=== PATIENT | male | born 1935 | race Caucasian/White ===

== ENCOUNTER → 2016-05-02 | Outpatient (CLI) | payer OTHER, BC ==
[~2016-05-02] MED LIST: ASPEC81 PO; CMD25 PO; CMD5 PO; LOSA100T2 PO; METO1TAB69 PO; PANT40TA PO
[2016-05-02 12:53] LABS: HEMATOCRIT 41.2 % (42-52); MEAN CELL VOLUME 94.3 fL (80-100); MEAN CORPUSCULAR HEMOGLOBIN 32.5 pg (25-34); MEAN CORPUSCULAR HGB CONC 34.5 g/dl (32-36); MEAN PLATELET VOLUME 11.8 fL (7.4-10.4); PLATELET COUNT 169 K/uL (130-400); RED BLOOD COUNT 4.37 M/uL (4.7-6.1); WHITE BLOOD COUNT 7.41 K/uL (4.8-10.8)
[2016-05-02 12:58] LABS: ALT/SGPT 25 U/L (12-78); BLOOD UREA NITROGEN 18 mg/dl (7-18); BUN/CREATININE RATIO 13.1 (10-20); CALCIUM 8.9 mg/dl (8.5-10.1); CARBON DIOXIDE 25 mmol/L (21-32); CHLORIDE 104 mmol/L (98-107); CHOLESTEROL 154 mg/dl (0-200); GLUCOSE 93 mg/dl (70-99); POTASSIUM 4.3 mmol/L (3.5-5.1); SODIUM 140 mmol/L (136-145)
[2016-05-02 13:08] LABS: ALB/GLOB RATIO 1.1 (0.9-2); ALKALINE PHOSPHATASE 70 U/L (45-117); AST/SGOT 23 U/L (15-37); CHOLESTEROL/HDL RATIO 3.4; HDL CHOLESTEROL 45 mg/dl; LDL CHOLESTEROL CALCULATED 86 mg/dl; TRIGLYCERIDES 114 mg/dl (0-150); VERY LOW DENSITY LIPOPROT CALC 23 mg/dl
== END | disposition home or self-care (01) ==
LOC: C.LABBFT 08:22
PROVIDERS: ATTEND Internal Medicine Cardiovascular Disease
DX: D64.9 Anemia, unspecified (principal)

== ENCOUNTER → 2017-05-08 | Outpatient (CLI) | payer OTHER, BC ==
[~2017-05-08] MED LIST changes: +METO100T44 PO; -METO1TAB69 PO
[2017-05-08 12:24] LABS: HEMATOCRIT 40.9 % (42-52); HEMOGLOBIN 14.1 g/dL (14.0-18.0); MEAN CELL VOLUME 93.6 fL (80-100); MEAN CORPUSCULAR HEMOGLOBIN 32.3 pg (25-34); MEAN CORPUSCULAR HGB CONC 34.5 g/dl (32-36); MEAN PLATELET VOLUME 11.6 fL (7.4-10.4); PLATELET COUNT 153 K/uL (130-400); RED CELL DISTRIBUTION WIDTH CV 13.4 % (11.5-14.5); RED CELL DISTRIBUTION WIDTH SD 46.4 fL (36.4-46.3); WHITE BLOOD COUNT 7.42 K/uL (4.8-10.8)
[2017-05-08 14:41] LABS: ALBUMIN 3.6 gm/dl (3.4-5.0); ALT/SGPT 27 U/L (12-78); AST/SGOT 22 U/L (15-37); BLOOD UREA NITROGEN 22 mg/dl (7-18); CALCIUM 8.9 mg/dl (8.5-10.1); CARBON DIOXIDE 29 mmol/L (21-32); CREATININE 1.52 mg/dl (0.60-1.40); GLUCOSE 92 mg/dl (70-99); POTASSIUM 4.2 mmol/L (3.5-5.1); SODIUM 137 mmol/L (136-145)
[2017-05-08 14:53] LABS: ALKALINE PHOSPHATASE 81 U/L (45-117); TOTAL PROTEIN 7.5 gm/dl (6.4-8.2)
== END | disposition home or self-care (01) ==
LOC: C.LABBFT 08:47
PROVIDERS: ATTEND Internal Medicine Cardiovascular Disease
DX: I10 Essential (primary) hypertension (principal); E03.9 Hypothyroidism, unspecified; I48.2 Chronic atrial fibrillation; Z79.01 Long term (current) use of anticoagulants

== ENCOUNTER 2017-06-04 20:46 | Observation (INO) | payer OTHER, BC ==
[~2017-06-04] VITALS: Ht 170.2 cm; Wt 93.2 kg
[2017-06-04 21:33] LABS: BASO % 0.3 %; BASO ABS # 0.03 K/uL (0-0.2); EOS % 2.6 %; EOS ABS # 0.27 K/uL (0-0.5); HEMATOCRIT 40.7 % (42-52); HEMOGLOBIN 14.2 g/dL (14.0-18.0); IG# 0.02 K/uL (0.00-0.02); LYMPH % 11.3 %; LYMPH ABS # 1.18 K/uL (1.2-3.4); MEAN CELL VOLUME 92.3 fL (80-100); MEAN CORPUSCULAR HEMOGLOBIN 32.2 pg (25-34); MEAN CORPUSCULAR HGB CONC 34.9 g/dl (32-36); MONO % 6.4 %; MONO ABS # 0.67 K/uL (0.11-0.59); NEUT % 79.2 %; NEUT ABS # 8.26 K/uL (1.4-6.5); PLATELET COUNT 143 K/uL (130-400); RED CELL DISTRIBUTION WIDTH CV 13.5 % (11.5-14.5); RED CELL DISTRIBUTION WIDTH SD 45.7 fL (36.4-46.3); WHITE BLOOD COUNT 10.43 K/uL (4.8-10.8)
--- NOTE | 2017-06-04 21:34 | DIAGNOSTIC IMAGING REPORT ---
CHEST ONE VIEW PORTABLE CLINICAL HISTORY: Atypical chest pain COMPARISON STUDY: June 2005 FINDINGS: The cardiac and mediastinal contours remain stable. There is stable elevation the right hemidiaphragm. There is no failure. There is no lobar consolidation. There are no pleural effusions. There are mild basilar atelectatic changes.[ IMPRESSION: No active disease in the chest. Electronically signed by: Mat Erickson M.D. 06/04/2017 9:32 PM Dictated Date/Time: 06/04/2017 9:32 PM
[2017-06-04 21:35] LABS: ISTAT CREATININE 1.4 mg/dl (0.6-1.3); ISTAT IONIZED CALCIUM 1.16 mmol/l (1.12-1.32); ISTAT POTASSIUM 4.2 mEq/L (3.3-5.0)
[2017-06-04 21:43] LABS: INR 1.7 (0.9-1.1)
[2017-06-04 21:56] LABS: ALBUMIN 3.9 gm/dl (3.4-5.0); ALKALINE PHOSPHATASE 98 U/L (45-117); ALT/SGPT 47 U/L (12-78); AST/SGOT 70 U/L (15-37); CKMB 2.4 ng/ml (0.5-3.6); LIPASE 143 U/L (73-393); TOTAL PROTEIN 7.8 gm/dl (6.4-8.2)
--- NOTE | 2017-06-04 22:15 | EMERGENCY ROOM VISIT NOTE ---
History Report prepared by Lazaro: Dariusz Araujo Under the Supervision of: Dr. Miguel Ángel Rust M.D. First contact with patient: 21:01 Chief Complaint: CHEST PAIN Stated Complaint: CHEST PRESSURE AND INDIGESTION History of Present Illness The patient is an 82 year old male who presents to the Emergency Room with complaints of improving chest pain starting around 1700 tonight. He describes the pain as a burning sensation. The patient additionally notes that he has been belching and having some indigestion, and the pain came before eating dinner. He also was feeling warm, and he states that he has upper back pain, though he says that he pulled a muscle a couple of days ago. The patient states that he has had indigestion for the past couple of weeks, though he states that it has felt a little it different today. He has a history of A-fib, and he states that he has not had any bypass or stents placed. He states that he has not been around anyone sick recently that he knows of. Pt denies LOC, headache, fevers, chills, diaphoresis, visual changes, neck pain, breathing difficulties, nausea, vomiting, abdominal pain, melena, hematochezia, urinary symptoms, numbness, weakness, lymphadenopathy, rash, or other complaints. Source of History: patient Onset: 1700 tonight Position: chest Quality: burning Timing: other (improving) Associated Symptoms: + back pain Note: Associated symptoms: Belching and indigestion Review of Systems See HPI for pertinent positives and negatives. A total of ten systems were reviewed and were otherwise negative. Past Medical & Surgical Medical Problems: (1) Atrial fibrillation (2) Nasal bleeding Social History Smoking Status: Never Smoker Alcohol Use: none Marital Status: Occupation Status: retired Current/Historical Medications Scheduled Aspirin Enteric Coated (Ecotrin Or Generic *), 81 MG PO DAILY Losartan Potassium & Hydrochlo (Hyzaar), 1 TABLET PO DAILY Metoprolol Succ (Toprol Xl) (Toprol-Xl ), 100 MG PO DAILY Pantoprazole (Protonix), 40 MG PO DAILY Warfarin Sod (Coumadin *), 2.5 MG PO 3XWK Warfarin Sod (Coumadin *), 5 MG PO 4XWK Allergies Coded Allergies: No Known Allergies (Verified Allergy, Unknown, 06/20/04) Physical Exam Vital Signs Date Time Temp Pulse Resp B/P (MAP) Pulse Ox O2 Delivery O2 Flow Rate FiO2 06/04/17 21:42 Room Air 06/04/17 21:42 Room Air 06/04/17 21:16 82 06/04/17 20:49 36.3 92 20 158/94 96 Room Air Physical Exam GENERAL: Awake, alert, well-appearing, in no distress HENT: Normocephalic, atraumatic. Oropharynx unremarkable. EYES: Normal conjunctiva. Sclera non-icteric. NECK: Supple. No nuchal rigidity. FROM. No masses. RESPIRATORY: Clear to auscultation. No wheezes. No rales. Normal respiratory effort. CARDIAC: Normal rate. Normal rhythm. No murmurs. No rubs. Extremities warm and well perfused. Pulses equal. No JVD. GI: Soft, non-distended. No tenderness to palpation. No rebound or guarding. No masses. RECTAL: Deferred. MUSCULOSKELETAL: Atraumatic. Chest examination reveals no tenderness. The back is symmetrical on inspection without obvious abnormality. There is no CVA tenderness to palpation. No joint edema. LOWER EXTREMITIES: 1+ edema. Calves are equal size bilaterally and non-tender. No discoloration. NEURO: Normal sensorium. No sensory or motor deficits noted. SKIN: No rash or jaundice noted. Medical Decision & Procedures ER Provider Diagnostic Interpretation: Radiology results as stated below per my review and radiologist interpretation: CHEST ONE VIEW PORTABLE CLINICAL HISTORY: Atypical chest pain COMPARISON STUDY: June 2005 FINDINGS: The cardiac and mediastinal contours remain stable. There is stable elevation the right hemidiaphragm. There is no failure. There is no lobar consolidation. There are no pleural effusions. There are mild basilar atelectatic changes.[ IMPRESSION: No active disease in the chest. Electronically signed by: Mat Erickson M.D. 06/04/2017 9:32 PM Dictated Date/Time: 06/04/2017 9:32 PM Laboratory Results 06/04/17 21:10 Red Blood Count 4.41, Mean Corpuscular Volume 92.3, Mean Corpuscular Hemoglobin 32.2, Mean Corpuscular Hemoglobin Concent 34.9, Mean Platelet Volume 11.0, Neutrophils (%) (Auto) 79.2, Lymphocytes (%) (Auto) 11.3, Monocytes (%) (Auto) 6.4, Eosinophils (%) (Auto) 2.6, Basophils (%) (Auto) 0.3, Neutrophils # (Auto) 8.26, Lymphocytes # (Auto) 1.18, Monocytes # (Auto) 0.67, Eosinophils # (Auto) 0.27, Basophils # (Auto) 0.03 Test 06/04/17 21:10 06/04/17 21:20 White Blood Count 10.43 K/uL (4.8-10.8) Red Blood Count 4.41 M/uL (4.7-6.1) Hemoglobin 14.2 g/dL (14.0-18.0) Hematocrit 40.7 % (42-52) Mean Corpuscular Volume 92.3 fL (80-100) Mean Corpuscular Hemoglobin 32.2 pg (25-34) Mean Corpuscular Hemoglobin Concent 34.9 g/dl (32-36) Platelet Count 143 K/uL (130-400) Mean Platelet Volume 11.0 fL (7.4-10.4) Neutrophils (%) (Auto) 79.2 % Lymphocytes (%) (Auto) 11.3 % Monocytes (%) (Auto) 6.4 % Eosinophils (%) (Auto) 2.6 % Basophils (%) (Auto) 0.3 % Neutrophils # (Auto) 8.26 K/uL (1.4-6.5) Lymphocytes # (Auto) 1.18 K/uL (1.2-3.4) Monocytes # (Auto) 0.67 K/uL (0.11-0.59) Eosinophils # (Auto) 0.27 K/uL (0-0.5) Basophils # (Auto) 0.03 K/uL (0-0.2) RDW Standard Deviation 45.7 fL (36.4-46.3) RDW Coefficient of Variation 13.5 % (11.5-14.5) Immature Granulocyte % (Auto) 0.2 % Immature Granulocyte # (Auto) 0.02 K/uL (0.00-0.02) Prothrombin Time 17.9 SECONDS (9.0-12.0) Prothromb Time International Ratio 1.7 (0.9-1.1) Activated Partial Thromboplast Time 33.0 SECONDS (21.0-31.0) Partial Thromboplastin Ratio 1.3 Total Bilirubin 0.8 mg/dl (0.2-1) Direct Bilirubin 0.4 mg/dl (0-0.2) Aspartate Amino Transf (AST/SGOT) 70 U/L (15-37) Alanine Aminotransferase (ALT/SGPT) 47 U/L (12-78) Alkaline Phosphatase 98 U/L (45-117) Total Creatine Kinase 125 U/L (39-308) Creatine Kinase MB 2.4 ng/ml (0.5-3.6) Creatine Kinase MB Ratio 1.9 (0-3.0) Troponin I < 0.015 ng/ml (0-0.045) Total Protein 7.8 gm/dl (6.4-8.2) Albumin 3.9 gm/dl (3.4-5.0) Lipase 143 U/L (73-393) Bedside Hemoglobin 15.0 g/dl (14.0-18.0) Bedside Hematocrit 44 % (42-52) Bedside Sodium 137 mEq/L (135-144) Bedside Potassium 4.2 mEq/L (3.3-5.0) Bedside Chloride 99 mEq/L (101-112) Bedside Total CO2 28 mEq/l (24-31) Anion Gap 15.0 mmol/L (16-25) Bedside Blood Urea Nitrogen 24 mg/dl (7-18) Bedside Creatinine 1.4 mg/dl (0.6-1.3) Bedside Glucose (other) 115 mg/dl (70-99) Bedside Ionized Calcium (Manisha) 1.16 mmol/l (1.12-1.32) Laboratory results reviewed by me ECG Per My Interpretation Indication: chest pain Rate (beats per minute): 76 Rhythm: atrial fibrillation Findings: nonspecific-ST abn, ST depression (subtle anterior) Comparison ECG Date: 05/23/10 Change: A fib has replaced sinus and ST segment changes are now present. ED Course 2100: The patient was evaluated in room C12. A complete history and physical exam was performed. Medical Decision Triage Nursing notes reviewed and agree them. Additional history obtained from the family. The patient's history was concerning for chest pain. Differential diagnosis: Etiologies such as cardiac ischemia, aortic dissection, pulmonary embolism, pneumonia, pneumothorax, musculoskeletal, infections, pericarditis, myocarditis , esophageal rupture, gastrointestinal, as well as others were entertained. Physical examination: As above. ER treatment provided: No medication given. The patient had taken aspirin and warfarin today. The patient was pain-free. On reassessment the patient felt well. Diagnostic interpretation by me: The electrocardiogram as above. Subtle ST changes. The labs revealed an unremarkable CBC and chemistry panel. Cardiac markers negative. Mild elevation of LFTs. Imaging studies: Chest x-ray as above. Ultrasound pending. The patient has some worrisome chest pain. Further cardiac evaluation will be necessary. Consultation: A consultation was placed with the hospitalist. The case was discussed and diagnostics were reviewed. The patient was evaluated in the ER for further treatment. Medication Reconcilliation Current Medication List: was personally reviewed by me Blood Pressure Screening Patient's blood pressure: Elevated blood pressure Monitored by the hospitalist Consults Consulting Physician: Dr. Milligan and Dr. Wyatt Hdz [facility] [place] Impression Primary Impression: Substernal chest pain Scribe Attestation The scribe's documentation has been prepared under my direction and personally reviewed by me in its entirety. I confirm that the note above accurately reflects all work, treatment, procedures, and medical decision making performed by me. Departure Information Dispostion Being Evaluated By Hospitalist Referrals Sly Joseph M.D. (PCP) Patient Instructions My [facility]
[2017-06-04] MEDS ORDERED: ASPI81TA28 PO (22:17)
[2017-06-04] MEDS ORDERED: METO50TA8 PO (22:17)
[2017-06-04] MEDS ORDERED: WARF-246 PO ×2 (22:17)
[2017-06-04] MEDS ORDERED: RANI150T3 PO (22:19)
[2017-06-04] MEDS ORDERED: DOCU100C PO (22:19)
[2017-06-04] MEDS ORDERED: ALUM-30 PO (22:19)
[2017-06-04 22:55] LABS: CALCIUM 8.9 mg/dl (8.5-10.1); CREATININE 1.46 mg/dl (0.60-1.40); POTASSIUM 4.2 mmol/L (3.5-5.1)
[2017-06-05] VITALS (9 sets, daily range): BP systolic 111–175; BP diastolic 65–98; PULSE 44–89; TEMP 36.3–36.8; O2SAT 94–97; Ht 170.2 cm; Wt 93.2 kg
--- NOTE | 2017-06-05 01:23 | History and Physical ---
History & Physical Date & Time of Service: Jun 05, 2017 at 01:15 Chief Complaint: Chest Pressure And Indigestion Primary Care Physician: Sly Joseph M.D. History of Present Illness Source: patient 82 yo M with pMHx paroxysmal a.fib, CKD, HTN, presented to the ER for evaluation of chest pain. He had been sitting watching TC when he started to feel burning along his sternum. he attributed this to indigestion, although had not yet eaten dinner. He denies "chest pain," but did feel worsening back back simultaneously. He states that he may have pulled a muscle a several days ago, but the pain today was different. No radiation of pain into jaw or arm, no dyspnea. He felt slightly nauseous and warm, but not diaphoretic. He check his BP at home and found it to be 157/99. This elevated pressure plus new symptoms prompted him to seek evaluation. Pain persisted until arrival to ER. He otherwise denies fevers/chills, headaches, palpitations, abdominal pain, lower extremity swelling or rashes. He is tolerating diet without nausea or vomiting, ambulating without exacerbating symptoms, voiding without urinary symptoms and stooling appropriately. ROS is unremarkable except as noted above. Past Medical/Surgical History Medical Problems: PAF (diagnosed in 2004) HTN Hypothyroid GERD BPH CKD Anemia Family History Noncontributory Social History Smoking Status: Never Smoker Smokeless Tobacco Use: No Alcohol Use: none Drug Use: none Marital Status: Housing status: lives with family Occupational Status: retired Immunizations History of Tetanus Vaccine?: 1998 History of Pneumococcal: No History of Hepatitis B Vaccine: No Allergies Coded Allergies: No Known Allergies (Verified Allergy, Unknown, 06/20/04) Home Medications Scheduled Aspirin (Aspirin Ec), 81 MG PO DAILY Docusate Sodium (Stool Softener), 100 MG PO TID Losartan Potassium & Hydrochlo (Hyzaar), 1 TABLET PO DAILY Metoprolol Succ (Toprol Xl) (Toprol-Xl), 50 MG PO DAILY Pantoprazole (Protonix), 40 MG PO DAILY Warfarin Sodium (Warfarin Sodium), 2.5 MG PO 3XWK Warfarin Sodium (Warfarin Sodium), 5 MG PO 4XWK Scheduled PRN Alum & Mag Hydrox-Simethicone (Mylanta), 1 DOSE PO UD PRN for Indigestion Ranitidine Hcl (Zantac), 150 MG PO BID PRN for Heartburn Physical Exam Vital Signs Date Time Temp Pulse Resp B/P (MAP) Pulse Ox O2 Delivery O2 Flow Rate FiO2 06/05/17 01:02 78 06/05/17 00:49 69 18 153/93 97 Room Air 06/04/17 23:14 71 18 165/101 96 Room Air 06/04/17 21:42 Room Air 06/04/17 21:42 Room Air 06/04/17 21:16 82 06/04/17 20:49 36.3 92 20 158/94 96 Room Air General Appearance: WD/WN, no apparent distress Head: normocephalic, atraumatic Eyes: normal inspection ENT: hearing grossly normal, pharynx normal Neck: supple, no JVD Respiratory/Chest: normal breath sounds, no respiratory distress, no accessory muscle use Cardiovascular: regular rate, rhythm, no murmur, normal peripheral pulses Abdomen/GI: normal bowel sounds, non tender, soft Back: normal inspection, no CVA tenderness Extremities/Musculoskelatal: no calf tenderness, + pedal edema, + swelling Neurologic/Psych: alert, normal mood/affect, oriented x 3 Skin: normal color, warm/dry, no rash Diagnostics Laboratory Results Results Past 24 Hours Test 06/04/17 21:10 06/04/17 21:20 Range/Units White Blood Count 10.43 4.8-10.8 K/uL Red Blood Count 4.41 4.7-6.1 M/uL Hemoglobin 14.2 14.0-18.0 g/dL Hematocrit 40.7 42-52 % Mean Corpuscular Volume 92.3 80-100 fL Mean Corpuscular Hemoglobin 32.2 25-34 pg Mean Corpuscular Hemoglobin Concent 34.9 32-36 g/dl Platelet Count 143 130-400 K/uL Mean Platelet Volume 11.0 7.4-10.4 fL Neutrophils (%) (Auto) 79.2 % Lymphocytes (%) (Auto) 11.3 % Monocytes (%) (Auto) 6.4 % Eosinophils (%) (Auto) 2.6 % Basophils (%) (Auto) 0.3 % Neutrophils # (Auto) 8.26 1.4-6.5 K/uL Lymphocytes # (Auto) 1.18 1.2-3.4 K/uL Monocytes # (Auto) 0.67 0.11-0.59 K/uL Eosinophils # (Auto) 0.27 0-0.5 K/uL Basophils # (Auto) 0.03 0-0.2 K/uL RDW Standard Deviation 45.7 36.4-46.3 fL RDW Coefficient of Variation 13.5 11.5-14.5 % Immature Granulocyte % (Auto) 0.2 % Immature Granulocyte # (Auto) 0.02 0.00-0.02 K/uL Prothrombin Time 17.9 9.0-12.0 SECONDS Prothromb Time International Ratio 1.7 0.9-1.1 Activated Partial Thromboplast Time 33.0 21.0-31.0 SECONDS Partial Thromboplastin Ratio 1.3 Sodium Level 135 136-145 mmol/L Potassium Level 4.2 3.5-5.1 mmol/L Chloride Level 101 98-107 mmol/L Carbon Dioxide Level 29 21-32 mmol/L Anion Gap 6.0 15.0 16-25 mmol/L Blood Urea Nitrogen 23 7-18 mg/dl Creatinine 1.46 0.60-1.40 mg/dl Est Creatinine Clear Calc Drug Dose 43.0 ml/min Estimated GFR () 51.2 Estimated GFR (Non- 44.2 BUN/Creatinine Ratio 15.5 10-20 Random Glucose 106 70-99 mg/dl Calcium Level 8.9 8.5-10.1 mg/dl Total Bilirubin 0.8 0.2-1 mg/dl Direct Bilirubin 0.4 0-0.2 mg/dl Aspartate Amino Transf (AST/SGOT) 70 15-37 U/L Alanine Aminotransferase (ALT/SGPT) 47 12-78 U/L Alkaline Phosphatase 98 45-117 U/L Total Creatine Kinase 125 39-308 U/L Creatine Kinase MB 2.4 0.5-3.6 ng/ml Creatine Kinase MB Ratio 1.9 0-3.0 Troponin I < 0.015 0-0.045 ng/ml Total Protein 7.8 6.4-8.2 gm/dl Albumin 3.9 3.4-5.0 gm/dl Lipase 143 73-393 U/L Bedside Hemoglobin 15.0 14.0-18.0 g/dl Bedside Hematocrit 44 42-52 % Bedside Sodium 137 135-144 mEq/L Bedside Potassium 4.2 3.3-5.0 mEq/L Bedside Chloride 99 101-112 mEq/L Bedside Total CO2 28 24-31 mEq/l Bedside Blood Urea Nitrogen 24 7-18 mg/dl Bedside Creatinine 1.4 0.6-1.3 mg/dl Bedside Glucose (other) 115 70-99 mg/dl Bedside Ionized Calcium (Manisha) 1.16 1.12-1.32 mmol/l Diagnostic Radiology CHEST ONE VIEW PORTABLE CLINICAL HISTORY: Atypical chest pain COMPARISON STUDY: June 2005 FINDINGS: The cardiac and mediastinal contours remain stable. There is stable elevation the right hemidiaphragm. There is no failure. There is no lobar consolidation. There are no pleural effusions. There are mild basilar atelectatic changes.[ IMPRESSION: No active disease in the chest. GB U/S - stat rad No gallstones or sonographic evidence of cholecystitis Right perinephric fluid. No right hydronephrosis Coarse liver parenchyma Impression Assessment and Plan 82 yo M with pMHx paroxysmal a.fib, CKD, HTN, presented to the ER for evaluation of chest pain. He had been sitting watching TC when he started to feel burning along his sternum. he attributed this to indigestion, although had not yet eaten dinner. He denies "chest pain," but did feel worsening back back simultaneously. He states that he may have pulled a muscle a several days ago, but the pain today was different. No radiation of pain into jaw or arm, no dyspnea. He felt slightly nauseous and warm, but not diaphoretic. He check his BP at home and found it to be 157/99. This elevated pressure plus new symptoms prompted him to seek evaluation. Pain persisted until arrival to ER. He otherwise denies fevers/chills, headaches, palpitations, abdominal pain, lower extremity swelling or rashes. He is tolerating diet without nausea or vomiting, ambulating without exacerbating symptoms, voiding without urinary symptoms and stooling appropriately. Chest pain - Serial troponin - Echo ordered - EKG prn chest pain Deranged LFTs - mildly elevated AST on admission - U/S GB (stat rad) only found right perinephric fluid, without right hydronephrosis - await final report - AM labs (6 hours later) show significantly elevated bilirub, AST, ALT - Ordered further imaging - CT abdo/pelv w/o contrast and HIDA scan - patient NPO (no water) for this scan - Trend LFTs - Consider GI consult A.fib - Continue metoprolol and warfarin - Trend INR CAD/HTN - Continue aspirin, metoprolol GERD - Continue pantoprazole and ranitidine CKD - Creatinine at baseline ~1.4 Hypothyroidism - patient not on levothyroxine VTE ppx - SCDs FULL CODE Attending addendum: I have physically seen this patient, have supervised the medical residents activities, and agree with the H&P unless as otherwise noted. Assessment and Plan: CAD/hypertension/atrial fibrillation/precordial chest pain-- The patient will be admitted to telemetry for serial cardiac enzymes, serial EKG's, cardiac rhythm monitoring and a 2-D echocardiogram with Dopplers. Continue metoprolol, aspirin and warfarin. Progressively abnormal LFTs-- As noted above, order CT of abdomen and pelvis and HIDA EF. Main concern would be cholecystitis at this point, which could also explain his symptoms of worse nausea and reflux. Advanced Directives Existing Advance Directive: Yes Existing Living Will: Yes Existing Power of Outboard Motor Inspector: Yes Existing Health Care Proxy: Yes ( Radha) Resuscitation Status Full code VTE Prophylaxis Will order VTE Prophylaxis: Yes Resident Tracking Resident Involvement: Resident Care Provided Care Provided: Adult Hospital Medicine
[2017-06-05] MEDS ORDERED: WARFARIN SOD 2.5 MG TAB PO STA (01:40)
[2017-06-05] MEDS ORDERED: NITROGLYCERIN 0.4 MG SL PER TAB CHARGE SL PRN (01:45)
[2017-06-05] MEDS ORDERED: RANITIDINE HCL 150 MG TAB PO PRN (01:45)
[2017-06-05] MEDS ORDERED: MAGNESIUM HYDROXIDE SUSP 30 ML UDC PO PRN (01:45)
[2017-06-05] MEDS ORDERED: ONDANSETRON INJ 2 MG/ML 2 ML VIAL IV PRN (01:45)
[2017-06-05] MEDS ORDERED: POLYETHYLENE (MIRALAX) 17 GM PACK PO PRN (01:45)
[2017-06-05] MEDS ORDERED: ALUMINUM/MAGNESIUM/SIMETH (MAALOX MAX) 30 ML UDC PO PRN (01:45)
[2017-06-05] MEDS ORDERED: ACETAMINOPHEN 325 MG TAB PO PRN (01:45)
[2017-06-05] MEDS ORDERED: IV FLUIDS COMPLETED PRN (03:15)
[2017-06-05 03:18] LABS: BASO % 0.2 %; BASO ABS # 0.02 K/uL (0-0.2); EOS % 1.7 %; EOS ABS # 0.15 K/uL (0-0.5); HEMATOCRIT 39.9 % (42-52); HEMOGLOBIN 13.8 g/dL (14.0-18.0); IG# 0.01 K/uL (0.00-0.02); LYMPH % 14.1 %; LYMPH ABS # 1.25 K/uL (1.2-3.4); MEAN CELL VOLUME 92.4 fL (80-100); MEAN CORPUSCULAR HEMOGLOBIN 31.9 pg (25-34); MEAN CORPUSCULAR HGB CONC 34.6 g/dl (32-36); MEAN PLATELET VOLUME 11.2 fL (7.4-10.4); MONO % 6.1 %; MONO ABS # 0.54 K/uL (0.11-0.59); NEUT % 77.8 %; NEUT ABS # 6.87 K/uL (1.4-6.5); PLATELET COUNT 139 K/uL (130-400); RED CELL DISTRIBUTION WIDTH CV 13.2 % (11.5-14.5); RED CELL DISTRIBUTION WIDTH SD 44.8 fL (36.4-46.3); WHITE BLOOD COUNT 8.84 K/uL (4.8-10.8)
[2017-06-05 03:38] LABS: ALBUMIN 3.7 gm/dl (3.4-5.0); ALT/SGPT 155 U/L (12-78); BLOOD UREA NITROGEN 22 mg/dl (7-18); CALCIUM 8.9 mg/dl (8.5-10.1); CARBON DIOXIDE 27 mmol/L (21-32); CREATININE 1.43 mg/dl (0.60-1.40); GLUCOSE 113 mg/dl (70-99); POTASSIUM 4.2 mmol/L (3.5-5.1); SODIUM 134 mmol/L (136-145)
[2017-06-05 03:45] LABS: ALKALINE PHOSPHATASE 110 U/L (45-117); AST/SGOT 215 U/L (15-37); TOTAL PROTEIN 7.5 gm/dl (6.4-8.2)
[2017-06-05] MEDS ORDERED: PNEUMOCOCCAL POLYSACCHARIDES 25 MCG/0.5 ML VIAL/SYR IM. ONE (03:45)
[2017-06-05] MEDS ORDERED: PNEUMOCOCCAL ADMINISTRATION CHARGE ONE (03:45)
--- NOTE | 2017-06-05 06:45 | DIAGNOSTIC IMAGING REPORT ---
GALLBLADDER-ABD LIMITED CLINICAL HISTORY: chest pain, elevated LFTs TECHNIQUE: Ultrasound COMPARISON STUDY: None FINDINGS: Normal gallbladder. No shadowing gallstones. Common bile duct 4 mm. Liver is uniform throughout. Pancreas is poorly seen due to overlying bowel content. Right kidney is negative for hydronephrosis. There is trace amount of right perinephric fluid. IMPRESSION: Trace right renal perinephric fluid. Otherwise negative right upper quadrant ultrasound. Potential mild fatty infiltration of liver The above report was generated using voice recognition software. It may contain grammatical, syntax or spelling errors. Electronically signed by: Kobi Lugo M.D. 06/05/2017 6:43 AM Dictated Date/Time: 06/05/2017 6:42 AM
--- NOTE | 2017-06-05 07:13 | DIAGNOSTIC IMAGING REPORT ---
ABD/PELVIS WITHOUT FOR STONE HISTORY: 82 years-old Male deranged LFTs in 6 hours acutely elevated LFTs COMPARISON: Right upper quadrant ultrasound 07/03/2016 TECHNIQUE: Multiple axial CT images of the abdomen and pelvis were obtained without the use of IV contrast. A dose lowering technique was used consistent with the principals of CHARANJIT. FINDINGS: Pleural calcifications are seen at the level the left lung base. Scattered areas of hyperattenuation are noted at the bilateral lung bases with areas of adjacent subsegmental atelectasis/scarring. Bilateral bronchial wall thickening suggests bronchitis. Solid nodules of the left lower lobe are seen measuring up to 4 mm. No pneumatosis or pneumoperitoneum. Imaged inferior cardiac chambers are enlarged with coronary arterial disease. The pulmonary arteries also appear prominent in size. There is bilateral hemidiaphragmatic elevation. Evaluation of the solid abdominal organs including the liver is limited without the use of IV contrast. Within the limitations of the study, the liver, spleen, gallbladder and adrenal glands are within normal limits. There is mild nonspecific mesenteric edema adjacent to the gallbladder neck within the distribution of the terrell hepatis. Moderate generalized pancreatic atrophy. No pancreatic ductal dilation. No intrahepatic biliary ductal dilation. Mild nonspecific bilateral perinephric stranding. 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 Ureters are unremarkable. No renal calculi or obstructive uropathy. Decompressed urinary bladder lumen. Phleboliths of the pelvis. Moderate atherosclerosis of the aorta without aneurysm. No bulky adenopathy. Fluid is noted within the distal esophagus. No bowel obstruction or focal bowel wall thickening identified. Normal appendix. Soft tissues are unremarkable. Bones appear mildly demineralized. Remote left-sided rib fractures. 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 5 mm anterolisthesis L5 on S1. Lucency involving the left aspect of the L2 vertebral body suggests a Schmorl's node. IMPRESSION: 1. Mild nonspecific stranding adjacent to the gallbladder neck and terrell hepatis. No cholelithiasis or CT evidence of acute cholecystitis. 2. No bowel obstruction or focal bowel wall thickening. 3. Additional findings as above. The above report was generated using voice recognition software. It may contain grammatical, syntax or spelling errors. Electronically signed by: Holger Amaya M.D. 06/05/2017 7:11 AM Dictated Date/Time: 06/05/2017 7:03 AM
[2017-06-05] MEDS: DOCUSATE SODIUM 100 MG CAP PO SCH ×3 (09:00→20:18)
--- NOTE | 2017-06-05 10:38 | Family Medicine Progress Note ---
Progress Note Date of Service Jun 05, 2017. Subjective Pt evaluation today including: conversation w/ patient, physical exam, chart review, lab review, review of studies Pain: intermittent mid sternal chest pain PO Intake: good Denies any CP, SOB, palpitations or dizziness. No nausea, vomiting, abdominal pain, BRBPR, melena. Constitutional: No fever, No chills Eyes: No worsening of vision Respiratory: No cough, No sputum, No wheezing, No shortness of breath, No dyspnea at rest Cardiovascular: + problem reported (mis sternal chest pain) Breast: No breast lump Abdomen: No pain, No nausea, No vomiting, No GI bleeding Male : No dysuria Neurologic: No memory loss Psychiatric: No depression symptoms Medications Current Inpatient Medications Medications (Trade) Dose Ordered Sig/Anuja Route Start Time Stop Time Status Last Admin Dose Admin Acetaminophen (Tylenol Tab) 650 mg Q4H PRN PO 06/05/17 01:45 07/05/17 01:44 06/05/17 05:10 650 MG Al Hydrox/Mg Hydrox/Simethicone (Maalox Max Susp) 15 ml Q4H PRN PO 06/05/17 01:45 07/05/17 01:44 06/05/17 05:09 15 ML Magnesium Hydroxide (Milk Of Magnesia Susp) 30 ml Q12H PRN PO 06/05/17 01:45 07/05/17 01:44 Ondansetron HCl (Zofran Inj) 4 mg Q6H PRN IV 06/05/17 01:45 07/05/17 01:44 Nitroglycerin (Nitrostat Tab) 0.4 mg UD PRN SL 06/05/17 01:45 07/05/17 01:44 Polyethylene (Miralax Powder Packet) 17 gm DAILY PRN PO 06/05/17 01:45 07/05/17 01:44 Aspirin (Ecotrin Tab) 81 mg DAILY PO 06/05/17 09:00 07/05/17 08:59 Docusate Sodium (coLACE CAP) 100 mg TID PO 06/05/17 09:00 07/05/17 08:59 Metoprolol Succinate (Toprol Xl Tab) 50 mg DAILY PO 06/05/17 09:00 07/05/17 08:59 Pantoprazole Sodium (Protonix Tab) 40 mg DAILY PO 06/05/17 09:00 07/05/17 08:59 Ranitidine HCl (zANTac TAB) 150 mg BID PRN PO 06/05/17 01:45 07/05/17 01:44 Warfarin Sodium (Coumadin Tab) 2.5 mg MoWeFr@1600 PO 06/06/17 16:00 07/06/17 15:59 Warfarin Sodium (Coumadin Tab) 5 mg SuTuThSa@1600 PO 06/05/17 16:00 07/05/17 15:59 Miscellaneous (Iv Fluids Completed) 1 ea PRN PRN N/A 06/05/17 03:15 06/05/18 03:14 Objective Vital Signs Date Time Temp Pulse Resp B/P (MAP) Pulse Ox O2 Delivery O2 Flow Rate FiO2 06/05/17 08:00 Room Air 06/05/17 07:25 36.8 71 16 130/81 (97) 95 Room Air 06/05/17 06:34 144/95 (111) 06/05/17 04:00 Room Air 06/05/17 02:54 36.4 85 16 175/98 (123) 94 Room Air 06/05/17 02:50 36.4 16 175/98 Room Air 06/05/17 02:18 78 16 149/102 97 06/05/17 02:11 78 16 149/102 97 Room Air 06/05/17 01:02 78 06/05/17 00:49 69 18 153/93 97 Room Air 06/04/17 23:14 71 18 165/101 96 Room Air 06/04/17 21:42 Room Air 06/04/17 21:42 Room Air 06/04/17 21:16 82 06/04/17 20:49 36.3 92 20 158/94 96 Room Air Physical Exam General Appearance: WD/WN, no apparent distress Eyes: normal inspection ENT: normal ENT inspection Neck: supple Respiratory/Chest: chest non-tender, lungs clear, normal breath sounds, no respiratory distress Cardiovascular: + irregularly irregular Abdomen: normal bowel sounds, soft, + pertinent finding (LLQ mild tenderness) Extremities: no pedal edema Neurologic/Psychiatric: alert, normal mood/affect, oriented x 3 Skin: warm/dry Laboratory Results Last 24 Hours Test 06/04/17 21:10 06/04/17 21:20 3/20/18 03:01 06/05/17 09:42 White Blood Count 10.43 K/uL 8.84 K/uL Red Blood Count 4.41 M/uL 4.32 M/uL Hemoglobin 14.2 g/dL 13.8 g/dL Hematocrit 40.7 % 39.9 % Mean Corpuscular Volume 92.3 fL 92.4 fL Mean Corpuscular Hemoglobin 32.2 pg 31.9 pg Mean Corpuscular Hemoglobin Concent 34.9 g/dl 34.6 g/dl Platelet Count 143 K/uL 139 K/uL Mean Platelet Volume 11.0 fL 11.2 fL Neutrophils (%) (Auto) 79.2 % 77.8 % Lymphocytes (%) (Auto) 11.3 % 14.1 % Monocytes (%) (Auto) 6.4 % 6.1 % Eosinophils (%) (Auto) 2.6 % 1.7 % Basophils (%) (Auto) 0.3 % 0.2 % Neutrophils # (Auto) 8.26 K/uL 6.87 K/uL Lymphocytes # (Auto) 1.18 K/uL 1.25 K/uL Monocytes # (Auto) 0.67 K/uL 0.54 K/uL Eosinophils # (Auto) 0.27 K/uL 0.15 K/uL Basophils # (Auto) 0.03 K/uL 0.02 K/uL RDW Standard Deviation 45.7 fL 44.8 fL RDW Coefficient of Variation 13.5 % 13.2 % Immature Granulocyte % (Auto) 0.2 % 0.1 % Immature Granulocyte # (Auto) 0.02 K/uL 0.01 K/uL Prothrombin Time 17.9 SECONDS Prothromb Time International Ratio 1.7 Activated Partial Thromboplast Time 33.0 SECONDS Partial Thromboplastin Ratio 1.3 Sodium Level 135 mmol/L 134 mmol/L Potassium Level 4.2 mmol/L 4.2 mmol/L Chloride Level 101 mmol/L 101 mmol/L Carbon Dioxide Level 29 mmol/L 27 mmol/L Anion Gap 6.0 mmol/L 15.0 mmol/L 6.0 mmol/L Blood Urea Nitrogen 23 mg/dl 22 mg/dl Creatinine 1.46 mg/dl 1.43 mg/dl Est Creatinine Clear Calc Drug Dose 43.0 ml/min 43.7 ml/min Estimated GFR () 51.2 52.5 Estimated GFR (Non- 44.2 45.3 BUN/Creatinine Ratio 15.5 15.4 Random Glucose 106 mg/dl 113 mg/dl Calcium Level 8.9 mg/dl 8.9 mg/dl Total Bilirubin 0.8 mg/dl 1.5 mg/dl Direct Bilirubin 0.4 mg/dl Aspartate Amino Transf (AST/SGOT) 70 U/L 215 U/L Alanine Aminotransferase (ALT/SGPT) 47 U/L 155 U/L Alkaline Phosphatase 98 U/L 110 U/L Total Creatine Kinase 125 U/L Creatine Kinase MB 2.4 ng/ml Creatine Kinase MB Ratio 1.9 Troponin I < 0.015 ng/ml < 0.015 ng/ml Total Protein 7.8 gm/dl 7.5 gm/dl Albumin 3.9 gm/dl 3.7 gm/dl Lipase 143 U/L 115 U/L Bedside Hemoglobin 15.0 g/dl Bedside Hematocrit 44 % Bedside Sodium 137 mEq/L Bedside Potassium 4.2 mEq/L Bedside Chloride 99 mEq/L Bedside Total CO2 28 mEq/l Bedside Blood Urea Nitrogen 24 mg/dl Bedside Creatinine 1.4 mg/dl Bedside Glucose (other) 115 mg/dl Bedside Ionized Calcium (Manisha) 1.16 mmol/l Globulin 3.8 gm/dl Albumin/Globulin Ratio 1.0 GALLBLADDER-ABD LIMITED CLINICAL HISTORY: chest pain, elevated LFTs TECHNIQUE: Ultrasound COMPARISON STUDY: None FINDINGS: Normal gallbladder. No shadowing gallstones. Common bile duct 4 mm. Liver is uniform throughout. Pancreas is poorly seen due to overlying bowel content. Right kidney is negative for hydronephrosis. There is trace amount of right perinephric fluid. IMPRESSION: Trace right renal perinephric fluid. Otherwise negative right upper quadrant ultrasound. Potential mild fatty infiltration of liver ABD/PELVIS WITHOUT FOR STONE HISTORY: 82 years-old Male deranged LFTs in 6 hours acutely elevated LFTs COMPARISON: Right upper quadrant ultrasound 07/03/2016 TECHNIQUE: Multiple axial CT images of the abdomen and pelvis were obtained without the use of IV contrast. A dose lowering technique was used consistent with the principals of ALARA. FINDINGS: Pleural calcifications are seen at the level the left lung base. Scattered areas of hyperattenuation are noted at the bilateral lung bases with areas of adjacent subsegmental atelectasis/scarring. Bilateral bronchial wall thickening suggests bronchitis. Solid nodules of the left lower lobe are seen measuring up to 4 mm. No pneumatosis or pneumoperitoneum. Imaged inferior cardiac chambers are enlarged with coronary arterial disease. The pulmonary arteries also appear prominent in size. There is bilateral hemidiaphragmatic elevation. Evaluation of the solid abdominal organs including the liver is limited without the use of IV contrast. Within the limitations of the study, the liver, spleen, gallbladder and adrenal glands are within normal limits. There is mild nonspecific mesenteric edema adjacent to the gallbladder neck within the distribution of the terrell hepatis. Moderate generalized pancreatic atrophy. No pancreatic ductal dilation. No intrahepatic biliary ductal dilation. Mild nonspecific bilateral perinephric stranding. 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 Ureters are unremarkable. No renal calculi or obstructive uropathy. Decompressed urinary bladder lumen. Phleboliths of the pelvis. Moderate atherosclerosis of the aorta without aneurysm. No bulky adenopathy. Fluid is noted within the distal esophagus. No bowel obstruction or focal bowel wall thickening identified. Normal appendix. Soft tissues are unremarkable. Bones appear mildly demineralized. Remote left-sided rib fractures. 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 5 mm anterolisthesis L5 on S1. Lucency involving the left aspect of the L2 vertebral body suggests a Schmorl's node. IMPRESSION: 1. Mild nonspecific stranding adjacent to the gallbladder neck and terrell hepatis. No cholelithiasis or CT evidence of acute cholecystitis. 2. No bowel obstruction or focal bowel wall thickening. 3. Additional findings as above. The above report was generated using voice recognition software. It may contain grammatical, syntax or spelling errors. Electronically signed by: Holger Amaya M.D. 06/05/2017 7:11 AM Dictated Date/Time: 06/05/2017 7:03 AM HEPATOBILIARY EF IMAGING CLINICAL HISTORY: 82 years-old Male presenting with Deranged LFTs worse since admission. TECHNIQUE: Dynamic imaging of the gallbladder was initiated 65 minutes after administration of 5.5 mCi of technetium 99m Choletec. Imaging was obtained every 5 minutes over a span of 40 minutes. 1.9 mcg of sincalide was injected 5 minutes prior to the start of imaging. The gallbladder ejection fraction was calculated. COMPARISON: CT from earlier the same day as well as ultrasound from 06/04/2017. FINDINGS: The hepatobiliary scan shows normal filling of the gallbladder at the start of imaging. Expected activity within the bowel also noted. However, gallbladder ejection fraction measures 28% (unequivocally normal greater than 50%, unequivocally abnormal less than 35%). IMPRESSION: 1. Abnormal gallbladder ejection fraction. Findings consistent with chronic cholecystitis. Electronically signed by: Sharad Stapleton M.D. 06/05/2017 2:44 PM Assessment and Plan 82 yo M with pMHx paroxysmal a.fib, CKD, HTN, presented to the ER for evaluation of chest pain which started while at rest. denied any N/V/abdominal pain. WAs noted to have an elevation of liver enzymes overnight and CT abd/ pelvis and HIDA were ordered aftera GB US was negative. Precordial Chest pain - Serial troponin neg - Echo pending - EKG prn chest pain Chronic cholecystitis: Deranged LFTs - GB US: Trace right renal perinephric fluid. Otherwise negative right upper quadrant ultrasound. Potential mild fatty infiltration of liver - Abd CT :. Mild nonspecific stranding adjacent to the gallbladder neck and terrell hepatis. No cholelithiasis or CT evidence of acute cholecystitis. - HIDA:Abnormal gallbladder ejection fraction. Findings consistent with chronic cholecystitis. - General surgery consult A.fib - Continue metoprolol and warfarin - Trend INR CAD/HTN - Continue aspirin, metoprolol GERD - Continue pantoprazole and ranitidine CKD - Creatinine at baseline ~1.4 Hypothyroidism - patient not on levothyroxine VTE ppx - SCDs FULL CODE Resident Physician Supervision Note: I interviewed and examined the patient. Discussed with Dr. Cheatham and agree with findings and plan as documented in the note. Any exceptions or clarifications are listed here: None Documented By: Rehan Coon feeling ok now. LFTs discussed with pt, pending HIDA this AM. once HIDA back d /w pt again. d/w GI who noted really most appropriate for surgical consult (no indications for ERCP/etc perioperatively). pt notes he walks 2 miles a day. vitals noted nad breathing unlabored no pallor or icterus, no RUQ guarding/ rebound cholecystitis -appears to have been cause of CP - mild but appearing to be evolving since he came in -surgical consult pending -medically acceptable risk for cholecystectomy; can reverse coumadin perioperatively as well (d/w pt) Resident Tracking Resident Involvement: Resident Care Provided Care Provided: Adult Hospital Medicine
[2017-06-05] MEDS ORDERED: SINCALIDE INJ 1.9 MCG in SODIUM CHLORIDE 0.9% 100ML 100 ML IV ONE (13:30)
--- NOTE | 2017-06-05 14:45 | DIAGNOSTIC IMAGING REPORT ---
HEPATOBILIARY EF IMAGING CLINICAL HISTORY: 82 years-old Male presenting with Deranged LFTs worse since admission. TECHNIQUE: Dynamic imaging of the gallbladder was initiated 65 minutes after administration of 5.5 mCi of technetium 99m Choletec. Imaging was obtained every 5 minutes over a span of 40 minutes. 1.9 mcg of sincalide was injected 5 minutes prior to the start of imaging. The gallbladder ejection fraction was calculated. COMPARISON: CT from earlier the same day as well as ultrasound from 06/04/2017. FINDINGS: The hepatobiliary scan shows normal filling of the gallbladder at the start of imaging. Expected activity within the bowel also noted. However, gallbladder ejection fraction measures 28% (unequivocally normal greater than 50%, unequivocally abnormal less than 35%). IMPRESSION: 1. Abnormal gallbladder ejection fraction. Findings consistent with chronic cholecystitis. Electronically signed by: Sharad Stapleton M.D. 06/05/2017 2:44 PM Dictated Date/Time: 06/05/2017 2:42 PM
[2017-06-05] MEDS: ASPIRIN 81 MG ECTAB PO SCH (14:47)
[2017-06-05] MEDS: PANTOprazole SOD 40 MG TAB PO SCH (14:49)
[2017-06-05] MEDS: METOPROLOL SUCC 50MG EXT REL TAB PO SCH (14:49)
[2017-06-05] MEDS ORDERED: WARFARIN SOD 5 MG TAB PO SCH (16:00)
--- NOTE | 2017-06-05 21:05 | Surgery Consultation ---
Consultation Date of Consultation: Jun 05, 2017. Attending Physician: Rehan Coon D.O. Reason for Consultation: cholecystitis History of Present Illness Patient is a 82M who presented to the ED last night due to chest/epigastric pain he felt was due to indigestion. He has had some associated belching as well. Reports he did take some antacids and tylenol a couple days ago which greatly improved his symptoms. States the pain came on before he ate dinner. He also reports some pain in the middle of his back as well, but feels he may have pulled a muscle approximately 2 days ago. No white count but his LFTs were elevated so an U/S acute cholecystitis which came back negative. He continued to have symptoms so a CT scan and HIDA scan were performed this AM. The CT came back negative for acute cholecystitis and his HIDA came back with a decreased EF indicating possible chronic cholecystitis. Denies fever/chills/nausea/ vomiting/recent illness. He has been moving his bowels and urinating without trouble. Last ate approximately 1 hour ago. Denies any pain associated with meals. Denies right shoulder pain. Last BM Sunday morning which he reports was normal for him. PSHx significant for lung biopsy and right inguinal hernia repair with mesh. Last colonoscopy 10 years ago which he reports was normal. Denies FHx of gallbladder disease. PMHx significant for A-fib, CKD and HTN. He currently takes Aspirin 81mg PO QD and Warfarin 5mg 4 times a week. Denies use of other blood thinning or anticoagulant medications. Past Medical/Surgical History Medical Problems: (1) Substernal chest pain Status: Acute Social History Smoking Status: Never Smoker Marital Status: Occupation Status: retired Allergies Coded Allergies: No Known Allergies (Verified Allergy, Unknown, 06/20/04) Home Medications Scheduled Aspirin (Aspirin Ec), 81 MG PO DAILY Docusate Sodium (Stool Softener), 100 MG PO TID Losartan Potassium & Hydrochlo (Hyzaar), 1 TABLET PO DAILY Metoprolol Succ (Toprol Xl) (Toprol-Xl), 50 MG PO DAILY Pantoprazole (Protonix), 40 MG PO DAILY Warfarin Sodium (Warfarin Sodium), 2.5 MG PO 3XWK Warfarin Sodium (Warfarin Sodium), 5 MG PO 4XWK Scheduled PRN Alum & Mag Hydrox-Simethicone (Mylanta), 1 DOSE PO UD PRN for Indigestion Ranitidine Hcl (Zantac), 150 MG PO BID PRN for Heartburn Current Inpatient Medications Current Inpatient Medications Medications (Trade) Dose Ordered Sig/Anuja Route Start Time Stop Time Status Last Admin Dose Admin Acetaminophen (Tylenol Tab) 650 mg Q4H PRN PO 06/05/17 01:45 07/05/17 01:44 06/05/17 05:10 650 MG Al Hydrox/Mg Hydrox/Simethicone (Maalox Max Susp) 15 ml Q4H PRN PO 06/05/17 01:45 07/05/17 01:44 06/05/17 05:09 15 ML Magnesium Hydroxide (Milk Of Magnesia Susp) 30 ml Q12H PRN PO 06/05/17 01:45 07/05/17 01:44 Ondansetron HCl (Zofran Inj) 4 mg Q6H PRN IV 06/05/17 01:45 07/05/17 01:44 Nitroglycerin (Nitrostat Tab) 0.4 mg UD PRN SL 06/05/17 01:45 07/05/17 01:44 Polyethylene (Miralax Powder Packet) 17 gm DAILY PRN PO 06/05/17 01:45 07/05/17 01:44 Aspirin (Ecotrin Tab) 81 mg DAILY PO 06/05/17 09:00 07/05/17 08:59 06/05/17 14:47 81 MG Docusate Sodium (coLACE CAP) 100 mg TID PO 06/05/17 09:00 07/05/17 08:59 06/05/17 14:47 100 MG Metoprolol Succinate (Toprol Xl Tab) 50 mg DAILY PO 06/05/17 09:00 07/05/17 08:59 06/05/17 14:49 50 MG Pantoprazole Sodium (Protonix Tab) 40 mg DAILY PO 06/05/17 09:00 07/05/17 08:59 06/05/17 14:49 40 MG Ranitidine HCl (zANTac TAB) 150 mg BID PRN PO 06/05/17 01:45 07/05/17 01:44 Warfarin Sodium (Coumadin Tab) 2.5 mg MoWeFr@1600 PO 06/06/17 16:00 07/06/17 15:59 Warfarin Sodium (Coumadin Tab) 5 mg SuTuThSa@1600 PO 06/05/17 16:00 07/05/17 15:59 06/05/17 16:35 5 MG Miscellaneous (Iv Fluids Completed) 1 ea PRN PRN N/A 06/05/17 03:15 06/05/18 03:14 Review of Systems Constitutional: No fever, No chills Respiratory: No shortness of breath Cardiovascular: No chest pain Abdomen: + pain (Epigastric), + problem reported (Reports abdominal gas), No nausea, No vomiting, No diarrhea, No constipation Musculoskeletal: + problem reported (back pain. ) Genitourinary - Male: No hematuria, No dysuria Integumentary: No rash, No color change Physical Exam Date Time Temp Pulse Resp B/P (MAP) Pulse Ox O2 Delivery O2 Flow Rate FiO2 06/05/17 16:00 Room Air 06/05/17 15:55 36.4 83 18 160/84 (109) 96 Room Air 06/05/17 12:00 Room Air 06/05/17 11:06 36.3 71 16 151/75 (100) 95 Room Air 06/05/17 08:00 Room Air 06/05/17 07:25 36.8 71 16 130/81 (97) 95 Room Air 06/05/17 06:34 144/95 (111) 06/05/17 04:00 Room Air 06/05/17 02:54 36.4 85 16 175/98 (123) 94 Room Air 06/05/17 02:50 36.4 16 175/98 Room Air 06/05/17 02:18 78 16 149/102 97 06/05/17 02:11 78 16 149/102 97 Room Air 06/05/17 01:02 78 06/05/17 00:49 69 18 153/93 97 Room Air 06/04/17 23:14 71 18 165/101 96 Room Air 06/04/17 21:42 Room Air 06/04/17 21:42 Room Air 06/04/17 21:16 82 06/04/17 20:49 36.3 92 20 158/94 96 Room Air Patient sitting up on side of bed conversing with family in the room. Patient reports he is in no pain at this time. General Appearance: WD/WN, no apparent distress Head: normocephalic, atraumatic ENT: hearing grossly normal Respiratory/Chest: no respiratory distress, no accessory muscle use Abdomen/GI: normal bowel sounds, non tender, soft, no organomegaly, no pulsatile mass, + pertinent finding ((-) murphys sign, no RUQ tenderness) Extremities/Musculoskelatal: normal inspection, + pertinent finding (No TTP in back where patient states he has had off and on pain. ) Neurologic/Psych: alert, normal mood/affect, oriented x 3 Skin: normal color, warm/dry Laboratory Results Last 24 Hours Test 06/04/17 21:10 06/04/17 21:20 06/05/17 03:01 06/05/17 09:42 White Blood Count 10.43 K/uL 8.84 K/uL Red Blood Count 4.41 M/uL 4.32 M/uL Hemoglobin 14.2 g/dL 13.8 g/dL Hematocrit 40.7 % 39.9 % Mean Corpuscular Volume 92.3 fL 92.4 fL Mean Corpuscular Hemoglobin 32.2 pg 31.9 pg Mean Corpuscular Hemoglobin Concent 34.9 g/dl 34.6 g/dl Platelet Count 143 K/uL 139 K/uL Mean Platelet Volume 11.0 fL 11.2 fL Neutrophils (%) (Auto) 79.2 % 77.8 % Lymphocytes (%) (Auto) 11.3 % 14.1 % Monocytes (%) (Auto) 6.4 % 6.1 % Eosinophils (%) (Auto) 2.6 % 1.7 % Basophils (%) (Auto) 0.3 % 0.2 % Neutrophils # (Auto) 8.26 K/uL 6.87 K/uL Lymphocytes # (Auto) 1.18 K/uL 1.25 K/uL Monocytes # (Auto) 0.67 K/uL 0.54 K/uL Eosinophils # (Auto) 0.27 K/uL 0.15 K/uL Basophils # (Auto) 0.03 K/uL 0.02 K/uL RDW Standard Deviation 45.7 fL 44.8 fL RDW Coefficient of Variation 13.5 % 13.2 % Immature Granulocyte % (Auto) 0.2 % 0.1 % Immature Granulocyte # (Auto) 0.02 K/uL 0.01 K/uL Prothrombin Time 17.9 SECONDS Prothromb Time International Ratio 1.7 Activated Partial Thromboplast Time 33.0 SECONDS Partial Thromboplastin Ratio 1.3 Sodium Level 135 mmol/L 134 mmol/L Potassium Level 4.2 mmol/L 4.2 mmol/L Chloride Level 101 mmol/L 101 mmol/L Carbon Dioxide Level 29 mmol/L 27 mmol/L Anion Gap 6.0 mmol/L 15.0 mmol/L 6.0 mmol/L Blood Urea Nitrogen 23 mg/dl 22 mg/dl Creatinine 1.46 mg/dl 1.43 mg/dl Est Creatinine Clear Calc Drug Dose 43.0 ml/min 43.7 ml/min Estimated GFR () 51.2 52.5 Estimated GFR (Non- 44.2 45.3 BUN/Creatinine Ratio 15.5 15.4 Random Glucose 106 mg/dl 113 mg/dl Calcium Level 8.9 mg/dl 8.9 mg/dl Total Bilirubin 0.8 mg/dl 1.5 mg/dl Direct Bilirubin 0.4 mg/dl Aspartate Amino Transf (AST/SGOT) 70 U/L 215 U/L Alanine Aminotransferase (ALT/SGPT) 47 U/L 155 U/L Alkaline Phosphatase 98 U/L 110 U/L Total Creatine Kinase 125 U/L Creatine Kinase MB 2.4 ng/ml Creatine Kinase MB Ratio 1.9 Troponin I < 0.015 ng/ml < 0.015 ng/ml < 0.015 ng/ml Total Protein 7.8 gm/dl 7.5 gm/dl Albumin 3.9 gm/dl 3.7 gm/dl Lipase 143 U/L 115 U/L Bedside Hemoglobin 15.0 g/dl Bedside Hematocrit 44 % Bedside Sodium 137 mEq/L Bedside Potassium 4.2 mEq/L Bedside Chloride 99 mEq/L Bedside Total CO2 28 mEq/l Bedside Blood Urea Nitrogen 24 mg/dl Bedside Creatinine 1.4 mg/dl Bedside Glucose (other) 115 mg/dl Bedside Ionized Calcium (Manisha) 1.16 mmol/l Globulin 3.8 gm/dl Albumin/Globulin Ratio 1.0 Test 06/05/17 15:48 Troponin I < 0.015 ng/ml Assessment & Plan Epigastric discomfort, Reduced EF at 28% indicating some chronic cholecystitis, no findings of acute cholecystitis on CT or RUQ U/S Patient reports no pain/discomfort at this time. Tolerating AHA heart healthy diet, No N/V. Despite LFTs and HIDA findings, Symptoms seem to correlate more with GERD/ PUD rather than a gallbladder etiology. No surgical intervention indicated at this time. Repeat LFTs in AM. May consider outpatient f/u to discuss possible surgical options if he continues to have problems with this in the future. Findings discussed with Dr. Rizvi. Will continue to follow. Please contact with questions or concerns.
[2017-06-06 04:07] VITALS: BP 100/57; PULSE 77; TEMP 36.8; O2SAT 95
[2017-06-06 06:31] LABS: BASO % 0.4 %; BASO ABS # 0.03 K/uL (0-0.2); EOS % 2.3 %; EOS ABS # 0.18 K/uL (0-0.5); HEMATOCRIT 41.8 % (42-52); HEMOGLOBIN 14.4 g/dL (14.0-18.0); IG# 0.01 K/uL (0.00-0.02); LYMPH % 23.5 %; LYMPH ABS # 1.86 K/uL (1.2-3.4); MEAN CELL VOLUME 92.7 fL (80-100); MEAN CORPUSCULAR HEMOGLOBIN 31.9 pg (25-34); MEAN CORPUSCULAR HGB CONC 34.4 g/dl (32-36); MEAN PLATELET VOLUME 10.7 fL (7.4-10.4); MONO % 7.1 %; MONO ABS # 0.56 K/uL (0.11-0.59); NEUT % 66.6 %; NEUT ABS # 5.29 K/uL (1.4-6.5); PLATELET COUNT 147 K/uL (130-400); RED CELL DISTRIBUTION WIDTH CV 13.4 % (11.5-14.5); RED CELL DISTRIBUTION WIDTH SD 45.3 fL (36.4-46.3); WHITE BLOOD COUNT 7.93 K/uL (4.8-10.8)
[2017-06-06 07:02] VITALS: BP 117/78; PULSE 80; TEMP 36.3; O2SAT 93
[2017-06-06 07:18] LABS: ALBUMIN 3.7 gm/dl (3.4-5.0); TOTAL PROTEIN 7.5 gm/dl (6.4-8.2)
[2017-06-06] MEDS: METOPROLOL SUCC 50MG EXT REL TAB PO SCH (07:40)
[2017-06-06] MEDS: PANTOprazole SOD 40 MG TAB PO SCH (07:40)
[2017-06-06] MEDS: ASPIRIN 81 MG ECTAB PO SCH (07:40)
[2017-06-06] MEDS: DOCUSATE SODIUM 100 MG CAP PO SCH ×2 (07:41→14:18)
[2017-06-06 08:13] LABS: CREATININE 1.45 mg/dl (0.60-1.40); POTASSIUM 4.2 mmol/L (3.5-5.1)
[2017-06-06 11:19] VITALS: BP 143/80; PULSE 88; TEMP 36.3; O2SAT 96
[2017-06-06 15:10] VITALS: BP 131/86; PULSE 85; TEMP 36.6; O2SAT 96
[2017-06-06] MEDS ORDERED: WARFARIN SOD 2.5 MG TAB PO SCH (16:00)
--- NOTE | 2017-06-06 16:21 | Discharge Instructions ---
Discharge Instructions Date of Service Jun 06, 2017. Admission Reason for Admission: Substernal Chest Pain Discharge Discharge Diagnosis / Problem: Substernal chest pain, chronic cholecystitis, GERD Discharge Goals Goal(s): Decrease discomfort, Improve function Activity Recommendations Activity Limitations: resume your previous activity . Instructions / Follow-Up Instructions / Follow-Up You were admitted with complaints of chest pain and were monitored and evaluated for heart disease. You were noted to have an increase in your liver enzymes and had further evaluation. your heart enzymes were normal and so was your EKG. the ultrasound of the gallbladder was unremarkable. You then underwent a CT scan of her abdomen and pelvis which revealed some changes consistent with chronic cholecystitis which was confirmed after the HIDA scan. General surgery was consulted who recommended outpatient follow-up and did not recommend surgery. It is likely your chest pain was secondary to acid reflux or inflammation of the gallbladder. Chronic cholecystitis: -Please monitor for pain in your right upper abdomen area and follow up with general surgery as an outpatient. -Try to modify your diet to low-fat Atrial fibrillation - Continue metoprolol and Coumadin High blood pressure -Continue losartan GERD - Continue pantoprazole and ranitidine Please follow-up with your family doctor in the next week Please follow-up with general surgery as an outpatient Current Hospital Diet Patient's current hospital diet: AHA Diet (Heart Healthy) Discharge Diet Recommended Diet: AHA Diet (Heart Healthy) Pending Studies Studies pending at discharge: yes List of pending studies: Echocardiogram results Medical Emergencies . Who to Call and When: Medical Emergencies: If at any time you feel your situation is an emergency, please call 911 immediately. . Non-Emergent Contact Non-Emergency issues call your: Primary Care Provider . . "Provider Documentation" section prepared by Karley Cheatham. . Resident Tracking Resident Involvement: Resident Care Provided Care Provided: Adult Hospital Medicine
--- NOTE | 2017-06-06 16:23 | Discharge Summary ---
Discharge Summary Date of Service Jun 06, 2017. Discharge Summary Admission Date: Jun 05, 2017 at 01:47 Discharge Date: Jun 06, 2017 Discharge Disposition: Home Principal Diagnosis: substernal chest pain Problems/Secondary Diagnoses: chronic cholecystitis, GERD Immunizations: History of Tetanus Vaccine?: 1998 History of Pneumococcal: No History of Hepatitis B Vaccine: No Procedures: [~ rep ct add3]] GALLBLADDER-ABD LIMITED CLINICAL HISTORY: chest pain, elevated LFTs TECHNIQUE: Ultrasound COMPARISON STUDY: None FINDINGS: Normal gallbladder. No shadowing gallstones. Common bile duct 4 mm. Liver is uniform throughout. Pancreas is poorly seen due to overlying bowel content. Right kidney is negative for hydronephrosis. There is trace amount of right perinephric fluid. IMPRESSION: Trace right renal perinephric fluid. Otherwise negative right upper quadrant ultrasound. Potential mild fatty infiltration of liver HEPATOBILIARY EF IMAGING CLINICAL HISTORY: 82 years-old Male presenting with Deranged LFTs worse since admission. TECHNIQUE: Dynamic imaging of the gallbladder was initiated 65 minutes after administration of 5.5 mCi of technetium 99m Choletec. Imaging was obtained every 5 minutes over a span of 40 minutes. 1.9 mcg of sincalide was injected 5 minutes prior to the start of imaging. The gallbladder ejection fraction was calculated. COMPARISON: CT from earlier the same day as well as ultrasound from 06/04/2017. FINDINGS: The hepatobiliary scan shows normal filling of the gallbladder at the start of imaging. Expected activity within the bowel also noted. However, gallbladder ejection fraction measures 28% (unequivocally normal greater than 50%, unequivocally abnormal less than 35%). IMPRESSION: 1. Abnormal gallbladder ejection fraction. Findings consistent with chronic cholecystitis. ABD/PELVIS WITHOUT FOR STONE HISTORY: 82 years-old Male deranged LFTs in 6 hours acutely elevated LFTs COMPARISON: Right upper quadrant ultrasound 07/03/2016 TECHNIQUE: Multiple axial CT images of the abdomen and pelvis were obtained without the use of IV contrast. A dose lowering technique was used consistent with the principals of CHARANJIT. FINDINGS: Pleural calcifications are seen at the level the left lung base. Scattered areas of hyperattenuation are noted at the bilateral lung bases with areas of adjacent subsegmental atelectasis/scarring. Bilateral bronchial wall thickening suggests bronchitis. Solid nodules of the left lower lobe are seen measuring up to 4 mm. No pneumatosis or pneumoperitoneum. Imaged inferior cardiac chambers are enlarged with coronary arterial disease. The pulmonary arteries also appear prominent in size. There is bilateral hemidiaphragmatic elevation. Evaluation of the solid abdominal organs including the liver is limited without the use of IV contrast. Within the limitations of the study, the liver, spleen, gallbladder and adrenal glands are within normal limits. There is mild nonspecific mesenteric edema adjacent to the gallbladder neck within the distribution of the terrell hepatis. Moderate generalized pancreatic atrophy. No pancreatic ductal dilation. No intrahepatic biliary ductal dilation. Mild nonspecific bilateral perinephric stranding. 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 Ureters are unremarkable. No renal calculi or obstructive uropathy. Decompressed urinary bladder lumen. Phleboliths of the pelvis. Moderate atherosclerosis of the aorta without aneurysm. No bulky adenopathy. Fluid is noted within the distal esophagus. No bowel obstruction or focal bowel wall thickening identified. Normal appendix. Soft tissues are unremarkable. Bones appear mildly demineralized. Remote left-sided rib fractures. 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 5 mm anterolisthesis L5 on S1. Lucency involving the left aspect of the L2 vertebral body suggests a Schmorl's node. IMPRESSION: 1. Mild nonspecific stranding adjacent to the gallbladder neck and terrell hepatis. No cholelithiasis or CT evidence of acute cholecystitis. 2. No bowel obstruction or focal bowel wall thickening. 3. Additional findings as above. Consultations: General Surgery Medication Reconciliation Continued Medications: Alum & Mag Hydrox-Simethicone (Mylanta) 1 Gabriela Gabriela 1 DOSE PO UD PRN for Indigestion TAKE PER PACKAGE DIRECTIONS Aspirin (Aspirin Ec) 81 Mg Tab 81 MG PO DAILY Docusate Sodium (Stool Softener) 100 Mg Cap 100 MG PO TID Losartan Potassium & Hydrochlo (Hyzaar) 1 Tab Tab 1 TABLET PO DAILY Metoprolol Succ (Toprol Xl) (Toprol-Xl) 50 Mg Tabcr 50 MG PO DAILY, TAB Pantoprazole (Protonix) 40 Mg Tab 40 MG PO DAILY Ranitidine Hcl (Zantac) 150 Mg Tab 150 MG PO BID PRN for Heartburn, TAB Warfarin Sodium (Warfarin Sodium) 5 Mg Tab 2.5 MG PO 3XWK, TAB TAKE HALF A TABLET (2.5 MG) EVERY SUNDAY,SUNDAY AND SUNDAY OR OTHERWISE DIRECTED TO TAKE BY ANTICOAGULATION CLINIC/MD Warfarin Sodium (Warfarin Sodium) 5 Mg Tab 5 MG PO 4XWK, TAB TAKE 5 MG EVERY SUNDAY,SUNDAY,SUNDAY AND SUNDAY OR OTHERWISE DIRECTED TO TAKE BY ANTICOAGULATION CLINIC/MD Discharge Exam denies any CP, SOB, nausea, vomiting , abdominal pain Review of Systems: Constitutional: No fever, No chills Eyes: No worsening of vision ENT: No hearing loss Respiratory: No cough, No sputum Cardiovascular: No chest pain Abdomen: No pain, No nausea, No vomiting, No diarrhea Musculoskeletal: No joint pain Genitourinary - Male: No hematuria, No dysuria, No urinary frequency Neurologic: No memory loss Psychiatric: No depression symptoms Endocrine: No fatigue Hematologic / Lymphatic: No abnormal bleeding/bruising Physical Exam: General Appearance: WD/WN, no apparent distress Eyes: normal inspection ENT: normal ENT inspection, hearing grossly normal Neck: supple Respiratory/Chest: chest non-tender, lungs clear, normal breath sounds Cardiovascular: regular rate, rhythm Abdomen / GI: normal bowel sounds, non tender, soft Extremities: no pedal edema Neurologic/Psychiatric: alert, normal mood/affect, oriented x 3 Skin: normal color Hospital Course 82-year-old male with a past medical history of paroxysmal atrial fibrillation, chronic kidney disease, hypertension presented to the ER for evaluation of chest pain. It started while at rest. Denied any radiation to jaw/arm, shortness of breath, palpitations, dizziness or lightheadedness. Denied any fevers or chills or coughing he was admitted to telemetry and monitored for ACS. troponins were trended and were negative 3. He was noted to have an elevation of his liver enzymes And underwent an gallbladder ultrasound, abdominal CT which revealed stranding around the neck of the gallbladder and also underwent a HIDA scan which revealed a decreased ejection fraction of 28% suggestive of chronic cholecystitis. General surgery was consulted who determined that the chest pain was likely secondary from GERD/PUD and recommended him to follow-up as an outpatient if his symptoms returned for an outpatient evaluation for surgery. He remained asymptomatic during rest of his hospital stay and was discharged in a stable condition. He was recommended to continue rest of his home medications and follow-up with his PCP in about a week. He was recommended to monitor for right upper quadrant abdominal pain and modify diet to low-fat to prevent cholecystitis. He was advised to seek medical attention if his symptoms returned. Resident Physician Supervision Note: I interviewed and examined the patient. Discussed with Dr. Cheatham and agree with findings and plan as documented in the note. Any exceptions or clarifications are listed here: None Documented By: Rehan Coon feeling better, discussed plan - for now outpt monitoring and management, return if sx return or worse, outpt PCP and surgery f/u - likely elective choley in future but no need to do so now vitals noted nad breathing unlabored mild flare of what apperas to be chronic cholecystitis -improving, safe for home/outpt management at this time, no need for emergent choley, outpt surgery f/u Total Time Spent: Less than 30 minutes This includes examination of the patient, discharge planning, medication reconciliation, and communication with other providers. Discharge Instructions Please refer to the electronic Patient Visit Report (Discharge Instructions) for additional information. Follow-Up Follow up with PCP in about a week. Follow up with General surgery for outpatient eval for surgery if symptoms return Additional Copies To Sly Joseph M.D. Resident Tracking Resident Involvement: Resident Care Provided Care Provided: Adult [facility]
[2017-06-06 16:42] VITALS: BP 131/86; PULSE 85; TEMP 36.6; O2SAT 96
--- NOTE | 2017-06-06 19:41 | ECHOCARDIOGRAM REPORT ---
*NOTICE TO RECEIVING REPUBLICAN AGENCY This information is strictly Confidential and protected under [place] law. [place] law prohibits you from making any further disclosure of this information unless further disclosure is expressly permitted by the written consent of the person to whom it pertains or is authorized by law. A general authorization for the release of medical or other information is not sufficient for this purpose. Hospital accepts no responsibility if the information is made available to any other person, INCLUDING THE PATIENT. Interpretation Summary * Name: BIBI TODD Study Date: 06/06/2017 10:27 AM BP: 130/81 mmHg * Patient Location: [facility] HR: 71 * : 1935 (M/d/yyyy) Gender: Male Height: 67 in * Age: 82 yrs Ethnicity: [place] Weight: 210 lb * Ordering Physician: Rhonda Milligan. * Referring Physician: Self, Referred * Performed By: Mishel Go RDCS * * Reason For Study: Chest Pain * BSA: 2.1 m2 * -- Conclusions -- * 1. Normal left ventricular size and systolic function. EF 55-60%. No regional wall motion abnormalities. Mild concentric left ventricular hypertrophy. * 2. The left atrium is moderately dilated. * 3. There is mild to moderate mitral regurgitation. * 4. There is mild to moderate tricuspid regurgitation. * 5. Aortic valve sclerosis moderate, without significant aortic valvular stenosis. * 6. Normal estimated right ventricular systolic pressure. * 7. No prior study available for comparison. Procedure Details * A complete two-dimensional transthoracic echocardiogram was performed (2D, M-mode, Doppler and color flow Doppler). Left Ventricle * Normal left ventricular size and systolic function. EF 55-60%. No regional wall motion abnormalities. Mild concentric left ventricular hypertrophy. Right Ventricle * The right ventricle is normal in size and function. * The right ventricular systolic function is normal as assessed by tricuspid annular plane systolic excursion (TAPSE) (normal >1.5 cm). Atria * The left atrium is moderately dilated. * Right atrial size is normal. * There is no evidence of atrial septal defect, but resolution does not allow assessment for a patent foramen ovale. Mitral Valve * The mitral valve is grossly normal. * There is no mitral valve stenosis. * There is mild to moderate mitral regurgitation. Tricuspid Valve * The tricuspid valve is not well visualized, but is grossly normal. * There is no tricuspid stenosis. * There is mild to moderate tricuspid regurgitation. Aortic Valve * The aortic valve is trileaflet. * Aortic valve sclerosis moderate, without significant aortic valvular stenosis. * No hemodynamically significant valvular aortic stenosis. * No aortic regurgitation is present. Pulmonic Valve * The pulmonary valve is inadequately visualized, but the Doppler data is adequate for interpretation. * There is no pulmonic valvular stenosis. * Mild pulmonic valvular regurgitation. Great Vessels * The aortic root is normal size. Pericardium/Pleural * There is no pericardial effusion. Great Vessels * IVC normal in size. MMode 2D Measurements and Calculations IVSd 1.3 cm IVSs 1.2 cm LVIDd 4.0 cm LVIDs 2.6 cm LVPWd 1.2 cm LVPWs 1.5 cm IVS/LVPW 1.1 FS 35.2 % EDV(Teich) 69.5 ml ESV(Teich) 24.2 ml EF(Teich) 65.1 % EDV(cubed) 63.4 ml ESV(cubed) 17.3 ml EF(cubed) 72.8 % % IVS thick -9.27 % % LVPW thick 30.6 % LV mass(C)d 172.7 grams LV mass(C)dI 83.7 grams/m\S\2 LV mass(C)s 110.1 grams LV mass(C)sI 53.4 grams/m\S\2 SV(Teich) 45.3 ml SI(Teich) 21.9 ml/m\S\2 SV(cubed) 46.2 ml SI(cubed) 22.4 ml/m\S\2 Ao root diam 3.4 cm Ao root area 9.2 cm\S\2 ACS 1.5 cm LA dimension 4.6 cm LA/Ao 1.3 LVAd ap4 27.7 cm\S\2 LVLd ap4 7.3 cm EDV(MOD-sp4) 88.7 ml EDV(sp4-el) 88.9 ml LVAs ap4 17.8 cm\S\2 LVLs ap4 7.4 cm ESV(MOD-sp4) 41.8 ml ESV(sp4-el) 36.5 ml EF(MOD-sp4) 52.8 % EF(sp4-el) 59.0 % LVAd ap2 22.1 cm\S\2 LVLd ap2 7.3 cm EDV(MOD-sp2) 59.9 ml EDV(sp2-el) 57.1 ml LVAs ap2 11.8 cm\S\2 LVLs ap2 5.6 cm ESV(MOD-sp2) 21.5 ml ESV(sp2-el) 21.0 ml EF(MOD-sp2) 64.2 % EF(sp2-el) 63.3 % LVLd %diff -0.39 % EDV(MOD-bp) 73.6 ml LVLs %diff -30.49 % ESV(MOD-bp) 33.7 ml EF(MOD-bp) 54.2 % SV(MOD-sp4) 46.9 ml SI(MOD-sp4) 22.7 ml/m\S\2 SV(MOD-sp2) 38.4 ml SI(MOD-sp2) 18.6 ml/m\S\2 SV(MOD-bp) 39.8 ml SI(MOD-bp) 19.3 ml/m\S\2 SV(sp4-el) 52.5 ml SI(sp4-el) 25.4 ml/m\S\2 SV(sp2-el) 36.1 ml SI(sp2-el) 17.5 ml/m\S\2 Doppler Measurements and Calculations MV E max fidelina 87.6 cm/sec MV dec time 0.14 sec Ao V2 max 88.9 cm/sec Ao max PG 3.2 mmHg Ao max PG (full) 1.4 mmHg LV V1 max PG 1.8 mmHg LV V1 max 67.2 cm/sec MR max fidelina 375.3 cm/sec MR max PG 56.3 mmHg MR mean fidelina 315.3 cm/sec MR mean PG 43.1 mmHg MR VTI 131.4 cm MR PISA 0.80 cm\S\2 MR PISA radius 0.36 cm PA V2 max 78.2 cm/sec PA max PG 2.4 mmHg PI max fidelina 179.4 cm/sec PI max PG 13.0 mmHg PI dec slope 132.7 cm/sec\S\2 PI P1/2t 396.1 msec TR max fidelina 222.6 cm/sec
== END 2017-06-06 17:04 | disposition home or self-care (01) ==
LOC: C.EDB 20:47 → C.MED 06-05 01:47 → ENRESERV 06-05 02:00
PROVIDERS: ADMIT Student in an Organized Health Care Education/Training Program; ATTEND Family Medicine
DX: R07.9 Chest pain, unspecified (principal); K81.1 Chronic cholecystitis; R79.89 Other specified abnormal findings of blood chemistry; K21.9 Gastro-esophageal reflux disease without esophagitis; I48.0 Paroxysmal atrial fibrillation; N18.9 Chronic kidney disease, unspecified; E03.9 Hypothyroidism, unspecified; Z79.82 Long term (current) use of aspirin; Z79.01 Long term (current) use of anticoagulants